=== PATIENT | female | born 1935 | race Caucasian/White ===

== ENCOUNTER 2021-05-12 20:28 | Emergency (ER) | payer MEDICARE | END 2021-05-12 23:28 | disposition home or self-care (01) | LOC: ER1 20:28 | DX: R10.13 Epigastric pain (principal); R30.0 Dysuria; I10 Essential (primary) hypertension; E78.5 Hyperlipidemia, unspecified; Z88.0 Allergy status to penicillin | CPT/HCPCS: 81001; 87086; 99284 ==

== ENCOUNTER 2021-12-28 10:32 | Emergency (ER) | payer MEDICARE ==
[2021-12-28 11:38] LABS: HEMOGLOBIN 13.2 gm/dl (12.3-15.3); RED BLOOD COUNT 4.34 M/UL (4.00-5.10); WHITE BLOOD COUNT 8.6 K/UL (4.5-11.0)
[2021-12-28 12:15] LABS: BUN/CREATININE RATIO 29 (0-10)
[2021-12-28] MEDS ORDERED: CEPHALEXIN500 MG PO (13:45)
[2021-12-28] MEDS ORDERED: ZOFRAN ODT 4 MG4 MG GT (13:45)
== END 2021-12-28 14:25 | disposition home or self-care (01) ==
LOC: ER1 10:32
PROVIDERS: Physician Assistant
DX: M48.56XA Collapsed vertebra, not elsewhere classified, lumbar region, initial encounter for fracture (principal); N39.0 Urinary tract infection, site not specified; I10 Essential (primary) hypertension; Z88.0 Allergy status to penicillin; Z88.6 Allergy status to analgesic agent; Z87.891 Personal history of nicotine dependence; Z85.3 Personal history of malignant neoplasm of breast; W01.10XA Fall on same level from slipping, tripping and stumbling with subsequent striking against unspecified object, initial encounter; Y92.009 Unspecified place in unspecified non-institutional (private) residence as the place of occurrence of the external cause
CPT/HCPCS: 70450; 72100; 80053; 81001; 82550; 82553; 83605; 85025; 96374; 96375; 96376; 99284; J0696; J2270; J2405

== ENCOUNTER 2022-01-03 15:57 | Emergency (ER) | payer MEDICARE ==
[~2022-01-03 15:57] MED LIST: CEPHALEXIN500 MG PO; ZOFRAN ODT 4 MG4 MG GT
[2022-01-03 17:14] LABS: HEMOGLOBIN 12.8 gm/dl (12.3-15.3); RED BLOOD COUNT 4.26 M/UL (4.00-5.10); WHITE BLOOD COUNT 11.4 K/UL (4.5-11.0)
[2022-01-03 17:37] LABS: BUN/CREATININE RATIO 38 (0-10)
[2022-01-03] MEDS ORDERED: PHENERGAN 25 MG25 M1 PO (21:38)
[2022-01-03] MEDS ORDERED: ZOFRAN ODT 4 MG4 MG GT (21:38)
[2022-01-03] MEDS ORDERED: PERCOCET 5/325 T1 EA PO (22:12)
== END 2022-01-03 21:59 | disposition home or self-care (01) ==
LOC: ER1 15:57 → CDU 21:00 → ER1 21:59
PROVIDERS: Family Medicine
DX: S22.089A Unspecified fracture of T11-T12 vertebra, initial encounter for closed fracture (principal); R10.9 Unspecified abdominal pain; E86.0 Dehydration; Z88.0 Allergy status to penicillin; W19.XXXA Unspecified fall, initial encounter
CPT/HCPCS: 36600; 71045; 72128; 72131; 80053; 81001; 82550; 82553; 82803; 83605; 83690; 83735; 83880; 84484; 85025; 87086; 93005; 96374; 99284; J1650; J2405; Q9967

== ENCOUNTER → 2022-01-08 | Outpatient (CLI) | payer MEDICARE ==
[~2022-01-08] MED LIST changes: +PERCOCET 5/325 T1 EA PO; +PHENERGAN 25 MG25 M1 PO
== END ==
LOC: MRI 10:40
DX: M48.54XA Collapsed vertebra, not elsewhere classified, thoracic region, initial encounter for fracture (principal); M48.56XA Collapsed vertebra, not elsewhere classified, lumbar region, initial encounter for fracture
CPT/HCPCS: 72146

== ENCOUNTER 2022-01-09 17:00 | Emergency (ER) | payer MEDICARE ==
[2022-01-09 18:12] LABS: HEMOGLOBIN 12.7 gm/dl (12.3-15.3); RED BLOOD COUNT 4.22 M/UL (4.00-5.10)
[2022-01-09 18:38] LABS: BUN/CREATININE RATIO 25 (0-10)
== END 2022-01-09 21:15 | disposition home or self-care (01) ==
LOC: ER1 17:00
PROVIDERS: Physician Assistant
DX: R55 Syncope and collapse (principal); R53.1 Weakness; Z88.0 Allergy status to penicillin
CPT/HCPCS: 71045; 80053; 82550; 82553; 83605; 83735; 83880; 84484; 85025; 93005; 96374; 99285; J0696; Q9967